=== PATIENT | male | born 1985 | race Caucasian/White ===

== ENCOUNTER 2020-08-31 01:02 | Emergency (ER) | payer BC ==
[~2020-08-31] VITALS: Ht 177.8 cm; Wt 77.1 kg
[2020-08-31 01:02] VITALS: BP 140/94
--- NOTE | 2020-08-31 01:11 | NUR ---
BIBSELF FROM HOME WITH C/C OF FACIAL PAIN AND SWELLING X 1 DAY, PT IS AMBULATORY ALERT ORIENTED X 4 , BREATHING EVEN AND UNLABORED, V/S CHECKED AND RECORDED, HOOKED TO MONITOR AND SPOX WILL CONT TO MONITOR
--- NOTE | 2020-08-31 01:12 | NUR ---
DR OLIVERA AT BED SIDE
[2020-08-31] MEDS ORDERED: AMOX-430 PO (01:14)
[2020-08-31] MEDS ORDERED: IBUP-1955 PO (01:14)
[2020-08-31] MEDS ORDERED: AMOX/CLAVULANATE 875 MG TABLET ONE (01:17)
[2020-08-31] MEDS ORDERED: IBUPROFEN 400 MG TABLET ONE (01:17)
--- NOTE | 2020-08-31 01:22 | NUR ---
Patient discharged to home in stable condition. Written and verbal after care instructions given. Patient verbalizes understanding of instruction.Mr Prasad is ambulatory with a steady gait
[2020-08-31] MEDS ORDERED: IBUPROFEN 400 MG TABLET PO ONE (01:30)
[2020-08-31] MEDS ORDERED: AMOX/CLAVULANATE 875 MG TABLET PO ONE (01:30)
== END 2020-08-31 01:22 | disposition home or self-care (01) ==
LOC: ER 01:10
DX: L03.211 Cellulitis of face (principal)

== ENCOUNTER 2024-07-23 10:20 | Emergency (ER) | payer BC, OTHER ==
[~2024-07-23] VITALS: Ht 177.8 cm; Wt 81.6 kg
[~2024-07-23 10:20] MED LIST: AMOX-430 PO; HYDR-3976 PO; IBUP-1955 PO
[2024-07-23 10:21] VITALS: BP 125/83; TEMP 98.3
[2024-07-23] MEDS ORDERED: CLON0.5T PO (10:35)
[2024-07-23] MEDS ORDERED: GENT3.5O7 OP (10:35)
[2024-07-23] MEDS ORDERED: MUPI1OIN5 TP (10:35)
[2024-07-23] MEDS ORDERED: GENT5DRO23 EACHEYE (10:45)
[2024-07-23 10:46] VITALS: O2SAT 99
== END 2024-07-23 10:47 | disposition home or self-care (01) ==
LOC: ER 10:23
DX: H10.9 Unspecified conjunctivitis (principal); F41.9 Anxiety disorder, unspecified; Z79.899 Other long term (current) drug therapy

== ENCOUNTER 2025-01-03 15:27 | Emergency (ER) | payer BC ==
[~2025-01-03] VITALS: Ht 177.8 cm; Wt 79.4 kg
[~2025-01-03 15:27] MED LIST changes: +CLON0.5T PO; +GENT3.5O7 OP; +GENT5DRO23 EACHEYE; +MUPI1OIN5 TP
[2025-01-03] MEDS: KETOROLAC TROMETHAMINE 15 MG/ML VIAL IM ONE (16:11)
[2025-01-03 18:01] VITALS: BP 126/86; TEMP 98.1; O2SAT 98
== END 2025-01-03 18:02 | disposition home or self-care (01) ==
LOC: ER 15:32
DX: M79.641 Pain in right hand (principal); M79.642 Pain in left hand; M79.605 Pain in left leg; Z79.899 Other long term (current) drug therapy; V49.09XA Driver injured in collision with other motor vehicles in nontraffic accident, initial encounter; Y93.89 Activity, other specified; Y92.410 Unspecified street and highway as the place of occurrence of the external cause; Y99.9 Unspecified external cause status
CPT/HCPCS: 99284; 96372; 73610; 73080; 73130 ×2; 73564; 73030; J1885